=== PATIENT | male | born 1990 | race Caucasian/White ===

== ENCOUNTER 2019-09-29 21:49 | Emergency (ER) | payer SELFPAY ==
[2019-09-29] MEDS ORDERED: Tetracaine 0.5% OPHTH SOLN/PF 4 ML BOT ONE (22:02)
[2019-09-29] MEDS ORDERED: Fluorescein Opthalmic Strip ONE (22:02)
== END 2019-09-29 22:43 | disposition home or self-care (01) ==
LOC: MADERS 21:49
DX: T15.01XA Foreign body in cornea, right eye, initial encounter (principal); Z87.891 Personal history of nicotine dependence
CPT/HCPCS: 65222; 90471

== ENCOUNTER 2019-10-02 14:30 | Emergency (ER) | payer SELFPAY ==
[2019-10-02] MEDS ORDERED: Adacel (T-DAP) 0.5 ML SYRINGE ONE (14:53)
== END 2019-10-02 15:10 | disposition home or self-care (01) ==
LOC: MADERS 14:30
DX: Z23 Encounter for immunization (principal); Z87.891 Personal history of nicotine dependence
CPT/HCPCS: 90471; 90715

== ENCOUNTER 2020-02-03 12:45 | Emergency (ER) | payer SELFPAY ==
[2020-02-03] MEDS ORDERED: Ketorolac Tromethamine 60 MG/2 ML VIAL ONE (13:40)
== END 2020-02-03 14:04 | disposition home or self-care (01) ==
LOC: MADERS 12:45
DX: M54.41 Lumbago with sciatica, right side (principal); Z87.891 Personal history of nicotine dependence; X50.0XXA Overexertion from strenuous movement or load, initial encounter
CPT/HCPCS: 96372; 99283; J1885

== ENCOUNTER 2020-09-20 20:21 | Emergency (ER) | payer SELFPAY ==
[2020-09-20] MEDS ORDERED: Tetracaine 0.5% PF 4 ML BOT ONE (20:33)
[2020-09-20] MEDS ORDERED: Boostrix 0.5 ML (Tdap) VIAL ONE (20:33)
[2020-09-20] MEDS ORDERED: Fluorescein Opthalmic Strip ONE (20:35)
== END 2020-09-20 21:11 | disposition home or self-care (01) ==
LOC: MADERS 20:21
DX: T15.01XA Foreign body in cornea, right eye, initial encounter (principal); F17.220 Nicotine dependence, chewing tobacco, uncomplicated
CPT/HCPCS: 65220; 90471; 90715

== ENCOUNTER 2020-11-08 11:53 | Emergency (ER) | payer SELFPAY ==
[2020-11-08 12:50] LABS: #Basophils 0.1 thou/uL (0.0-0.2); #Eosinphils 0.1 thou/uL (0.0-0.7); #Lymphocytes 3.4 thou/uL (1.20-3.40); #Monocytes 0.5 thou/uL (0.11-0.59); #Neutrophils 3.4 thou/uL (1.40-6.50); %Basophils 1.6 % (0.0-1.0); %Eosinophils 1.7 % (0.0-10.0); %Lymphocytes 45.5 % (21.0-51.0); %Monocytes 6.2 % (0.0-10.0); Hemoglobin 16.2 g/dL (14.0-18.0); Mean Corpuscular HGB CONC 33.1 g/dL (32.0-36.0); Mean Corpuscular Hemoglobin 28.5 pg (27.0-31.0); Mean Platelet Volume 8.1 fL (7.4-10.4); Platelet Count 236 thou/uL (130-400); RBC Distribution Width 10.8 % (11.5-14.5); Red Blood Cell (RBC) Count 5.71 mill/uL (4.70-6.10); White Blood Cell (WBC) Count 7.5 thou/uL (4.8-10.8)
[2020-11-08 13:05] LABS: ALT (SGPT) 20 U/L (8-55); AST (SGOT) 19 U/L (5-34); Albumin 4.6 g/dL (3.5-5.0); Alkaline Phosphatase 57 U/L (40-110); Anion Gap 13 mmol/L (10-20); BUN (Urea Nitrogen) 16 mg/dL (8.9-20.6); Bilirubin, Total 0.5 mg/dL (0.2-1.2); Calc. Creatinine Clearance 0 mL/min (70-130); Carbon Dioxide 27 mmol/L (22-29); Chloride 103 mmol/L (98-107); Globulin 2.8 g/dL (2.4-3.5); Glucose 92 mg/dL (70-105); Potassium 4.2 mmol/L (3.5-5.1); Protein, Total 7.4 g/dL (6.0-8.3); Sodium 139 mmol/L (136-145)
[2020-11-08] MEDS ORDERED: Meclizine HCl 25 MG TAB ONE (13:16)
== END 2020-11-08 14:13 | disposition home or self-care (01) ==
LOC: MADERS 11:53
DX: H81.399 Other peripheral vertigo, unspecified ear (principal); F17.220 Nicotine dependence, chewing tobacco, uncomplicated; R29.700 NIHSS score 0
CPT/HCPCS: 36415; 36416; 71045; 80053; 85025; 93005

== ENCOUNTER 2020-11-28 17:30 | Emergency (ER) | payer SELFPAY | END 2020-11-28 18:03 | disposition home or self-care (01) | LOC: MADERS 17:30 | DX: L03.116 Cellulitis of left lower limb (principal); F17.220 Nicotine dependence, chewing tobacco, uncomplicated | CPT/HCPCS: 99283 ==

== ENCOUNTER 2021-03-22 15:19 | Emergency (ER) | payer SELFPAY ==
[2021-03-23 19:21] LABS: SARS-CoV-2 PCR by NAA DETECTED (NotDetected)
== END 2021-03-22 16:18 | disposition home or self-care (01) ==
LOC: MADERS 15:19
DX: U07.1 COVID-19 (principal); J20.9 Acute bronchitis, unspecified; Z71.6 Tobacco abuse counseling; F17.220 Nicotine dependence, chewing tobacco, uncomplicated
CPT/HCPCS: 99406; U0003; U0005

== ENCOUNTER 2025-07-08 13:32 | Emergency (ER) | payer OTHER ==
[~2025-07-08 13:32] MED LIST: Iopamidol 370 76% 100 ML VIAL ONE
[2025-07-08] MEDS ORDERED: Ketorolac Tromethamine 30 MG (1 mL) VIAL ONE (14:13)
[2025-07-08] MEDS ORDERED: Dexamethasone 10 MG/ML VIAL ONE (14:13)
[2025-07-08 14:24] LABS: #Basophils 0.1 thou/uL (0.0-0.2); #Eosinophils 0.4 thou/uL (0.0-0.7); #Lymphocytes 3.6 thou/uL (1.20-3.40); #Monocytes 0.5 thou/uL (0.11-0.59); #Neutrophils 5.0 thou/uL (1.40-6.50); %Basophils 1.5 % (0.0-1.0); %Eosinophils 3.8 % (0.0-10.0); %Lymphocytes 37.4 % (21.0-51.0); %Monocytes 5.3 % (0.0-10.0); %Neutrophils 52.2 % (42.0-75.0); Hematocrit 41.3 % (42.0-52.0); Hemoglobin 13.6 g/dL (14.0-18.0); Mean Corpuscular Hemoglobin 29.4 pg (27.0-31.0); Mean Corpuscular Volume 89.3 fl (78.0-98.0); Platelet Count 259 10x3/uL (130-400); Red Blood Cell (RBC) Count 4.63 mill/uL (4.70-6.10); White Blood Cell (WBC) Count 9.6 10x3/uL (4.8-10.8)
[2025-07-08 14:39] LABS: ALT (SGPT) 18 U/L (Less than 45); AST (SGOT) 27 U/L (11-34); Albumin 4.4 g/dL (3.1-4.5); Alkaline Phosphatase 58 U/L (40-110); Anion Gap 16 mmol/L (10-20); BUN (Urea Nitrogen) 27 mg/dL (8.9-20.6); Bilirubin, Total 0.2 mg/dL (0.3-1.2); Calc. Creatinine Clearance 0 mL/min (70-130); Calcium 9.0 mg/dL (7.8-10.44); Carbon Dioxide 20 mmol/L (22-29); Chloride 110 mmol/L (98-107); Globulin 2.2 g/dL (2.4-3.5); Glucose 98 mg/dL (70-105); Potassium 4.2 mmol/L (3.5-5.1); Sodium 142 mmol/L (136-145)
== END 2025-07-08 15:15 | disposition home or self-care (01) ==
LOC: MADERS 13:32
DX: H05.221 Edema of right orbit (principal); K02.9 Dental caries, unspecified; G23.8 Other specified degenerative diseases of basal ganglia; F17.220 Nicotine dependence, chewing tobacco, uncomplicated
CPT/HCPCS: 70487; 80053; 85025; 96374; 96375; J1100; J1885; Q9967

== ENCOUNTER 2025-07-12 01:13 | Emergency (ER) | payer OTHER ==
[2025-07-12] MEDS ORDERED: Prochlorperazine 10 MG/2 ML VIAL ONE (01:38)
[2025-07-12] MEDS ORDERED: Ketorolac Tromethamine 30 MG (1 mL) VIAL ONE (02:58)
== END 2025-07-12 03:20 | disposition home or self-care (01) ==
LOC: MADERS 01:13
DX: R51.9 Headache, unspecified (principal); R29.701 NIHSS score 1; K02.9 Dental caries, unspecified; F17.210 Nicotine dependence, cigarettes, uncomplicated; Z79.899 Other long term (current) drug therapy
CPT/HCPCS: 70450; 96374; 96375; J0780; J1885; J2919; J7120; Q0162

== ENCOUNTER 2025-07-19 17:15 | Emergency (ER) | payer OTHER ==
[2025-07-19] MEDS ORDERED: Lidocaine 1% (PF) 30 ML VIAL ONE (17:23)
== END 2025-07-19 18:10 | disposition home or self-care (01) ==
LOC: MADERS 17:15
DX: S61.211A Laceration without foreign body of left index finger without damage to nail, initial encounter (principal); F17.210 Nicotine dependence, cigarettes, uncomplicated; W26.9XXA Contact with unspecified sharp object(s), initial encounter
CPT/HCPCS: 12002; 90471; 90715; J2003